=== PATIENT | female | born 1975 | race African-American/Black ===

== ENCOUNTER 2020-02-10 22:19 | Emergency (ER) | payer MEDICAID ==
[~2020-02-10] VITALS: Ht 152.4 cm; Wt 145.0 kg
[2020-02-10 22:35] VITALS: BP 142/81
[2020-02-10] MEDS ORDERED: ACETAMINOPHEN 500MG TABLET PO ONE (22:45)
== END 2020-02-11 01:30 | disposition home or self-care (01) ==
LOC: ER 22:19
DX: Z20.828 Contact with and (suspected) exposure to other viral communicable diseases (principal); J40 Bronchitis, not specified as acute or chronic; Z88.0 Allergy status to penicillin
CPT/HCPCS: 71045; 87635; 93005; 99285; C9803

== ENCOUNTER 2020-02-12 11:38 | Inpatient (IN) | payer MEDICAID ==
[~2020-02-12] VITALS: Ht 152.4 cm; Wt 138.3 kg
[~2020-02-12 11:38] MED LIST: LIDOCAINE HCL/PF 1% 2ML VIAL ONE
[2020-02-12] MEDS ORDERED: ACETAMINOPHEN 325MG TABLET PO ONE (12:15)
[2020-02-12] MEDS ORDERED: DEXAMETHASONE 10 MG/ML VIAL IV ONE (12:45)
[2020-02-12] MEDS ORDERED: CEFTRIAXONE 1 G PREMIX 50 ML IV ONE (12:45)
[2020-02-12 13:17] LABS: BG BASE EXCESS -0.1 mmol/L (-2.0-2.0); BG CARBOXYHEMOGLOBIN 0.3 % (0.5-1.5); BG DEOXYHEMOGLOBIN 7.6 % (0.0-5.0); BG FRACTION INSPIRED OXYGEN 28; BG HCO3 ACT 22.4 mmol/L (22.0-26.0); BG METHEMOGLOBIN 0.1 % (0.0-1.5); BG OXYGEN SATURATION 92.4 % (92.0-98.5); BG PCO2 29.6 mmHg (35.0-45.0); BG PH 7.497 (7.350-7.450); BG PO2 64.6 mmHg (75.0-100.0); BG SAMPLE SITE RIGHT RADIAL; BG TOTAL HEMOGLOBIN 11.2 g/dL (12.0-18.0); BG VENT MODE NASAL CANNULA
[2020-02-12 13:29] LABS: BASOPHILS % 1.1 % (0.0-2.0); EOSINOPHILS % 0.1 % (0.0-5.0); HEMATOCRIT. 33.3 % (36.0-48.0); HEMOGLOBIN. 10.9 g/dL (12.0-16.0); MEAN CORPUSCULAR HEMOGLOBIN 24.5 pg (28.0-32.0); MEAN PLATELET VOLUME 9.4 fl (7.4-10.4); MONOCYTES % 5.3 % (2.0-8.0); NEUTROPHILS % 61.5 % (40.0-76.0); PLATELET 180 x1000/uL (130-400); RED BLOOD CELL COUNT 4.45 mill/uL (4.2-5.4)
[2020-02-12 13:37] LABS: CHLORIDE 104 mEq/L (98-107)
[2020-02-12 13:42] LABS: HCG SCREEN NEGATIVE
[2020-02-12 13:45] LABS: CREATINE KINASE 122 IU/L (26-192)
[2020-02-12 13:59] LABS: CLARITY URINE CLEAR (CLEAR); COLOR URINE YELLOW (YELLOW); KETONES URINE 1+ (NEGATIVE); LEUKOCYTE ESTERASE URINE NEGATIVE (NEGATIVE); NITRITE URINE NEGATIVE (NEGATIVE); OCCULT BLOOD URINE 1+ (NEGATIVE); PROTEIN URINE 4+ (NEGATIVE); SPECIFIC GRAVITY URINE 1.035 (1.005-1.030)
[2020-02-12 14:26] LABS: D-DIMER 0.41 mg/L FEU (<0.50); PROTHROMBIN TIME 10.7 sec (9.6-11.0)
[2020-02-12] MEDS ORDERED: CEFTRIAXONE 1 G PREMIX 50 ML IV SCH (15:15)
[2020-02-12] MEDS ORDERED: ONDANSETRON HCL 4MG/2ML INJ IV PRN (15:15)
[2020-02-12] MEDS ORDERED: POTASSIUM CHLORIDE 20MEQ TABLET SR PO NR (16:15)
[2020-02-12] MEDS ORDERED: BENZONATATE 100MG CAPSULE PO PRN (16:15)
[2020-02-12] MEDS: ENOXAPARIN 120MG/0.8ML SYR SUBCUT SCH (16:39)
[2020-02-12] MEDS: AZITHROMYCIN 250 MG TABLET PO SCH (16:39)
[2020-02-12 17:00] LABS: *AMPHETAMINES SCREEN URINE NEGATIVE (NEGATIVE); *BARBITURATES SCREEN URINE NEGATIVE (NEGATIVE); *BENZODIAZEPINES SCREEN URINE NEGATIVE (NEGATIVE); *COCAINE SCREEN URINE NEGATIVE (NEGATIVE); CANNABINOID URINE SCREEN NEGATIVE (NEGATIVE); METHADONE URINE SCREEN NEGATIVE (NEGATIVE); OPIATES URINE SCREEN NEGATIVE (NEGATIVE); PHENCYCLIDINE URINE SCREEN NEGATIVE (NEGATIVE)
[2020-02-12 23:40] VITALS: BP 128/84
[2020-02-13] VITALS: BP 128/84
[2020-02-13 04:00] VITALS: BP 116/75
[2020-02-13] MEDS: ENOXAPARIN 120MG/0.8ML SYR SUBCUT SCH (04:15)
[2020-02-13] MEDS: ACETAMINOPHEN 325MG TABLET PO PRN (04:40)
[2020-02-13] MEDS ORDERED: PNEUMOCOCCAL 23-VAL P-SAC VAC 0.5 ML IM ONE (08:00)
[2020-02-13] MEDS: AZITHROMYCIN 250 MG TABLET PO SCH (08:04)
[2020-02-13 08:22] VITALS: BP 117/75
[2020-02-13] MEDS ORDERED: DEXAMETHASONE 4MG TABLET PO SCH (09:00)
[2020-02-13] MEDS: CEFTRIAXONE 1,000 MG in DEXTROSE 5% WATER 50 ML IV SCH (10:34)
[2020-02-13] MEDS ORDERED: CEFTRIAXONE 1,000 MG in DEXTROSE 5% WATER 50 ML IV SCH (11:00)
[2020-02-13 12:06] VITALS: BP 130/87
[2020-02-13] MEDS ORDERED: DEXTROSE 50% WATER 50ML SYRINGE IV PRN (12:15)
[2020-02-13] MEDS: BLOOD SUGAR DIAGNOSTIC STRIP TEST SCH ×3 (12:39→21:22)
[2020-02-13] MEDS: INSULIN LISPRO 100 UNITS/ML SUBCUT SCH ×3 (12:45→21:22)
[2020-02-13] MEDS ORDERED: INSULIN GLARGINE UD 100 UNITS/ML SYR SUBCUT NR (13:30)
[2020-02-13 16:00] VITALS: BP 116/67
[2020-02-13] MEDS ORDERED: DEXAMETHASONE 4MG TABLET PO NR (16:00)
[2020-02-13] MEDS: ENOXAPARIN 150MG/ML SYR SUBCUT SCH (17:11)
[2020-02-13] MEDS: ALBUTEROL 6.7GM HFA INHALER ORI SCH (17:27)
[2020-02-13 20:00] VITALS: BP 111/63
[2020-02-13] MEDS: INSULIN GLARGINE UD 100 UNITS/ML SYR SUBCUT SCH (21:38)
[2020-02-14] VITALS: BP 112/65
[2020-02-14] MEDS ORDERED: VANCOMYCIN 2,000 MG in DEXT 5% WATER 500 ML IV NR ×2
[2020-02-14] MEDS: ALBUTEROL 6.7GM HFA INHALER ORI SCH ×5 (00:04→23:47)
[2020-02-14 04:00] VITALS: BP 112/55
[2020-02-14] MEDS: ACETAMINOPHEN 325MG TABLET PO PRN ×2 (05:35→13:33)
[2020-02-14] MEDS: ENOXAPARIN 150MG/ML SYR SUBCUT SCH ×2 (05:57→17:21)
[2020-02-14] MEDS: BLOOD SUGAR DIAGNOSTIC STRIP TEST SCH ×4 (07:40→21:16)
[2020-02-14 08:00] VITALS: BP 130/66
[2020-02-14] MEDS: INSULIN LISPRO 100 UNITS/ML SUBCUT SCH ×4 (08:19→21:16)
[2020-02-14] MEDS: DEXAMETHASONE 4MG TABLET PO SCH (09:39)
[2020-02-14] MEDS: AZITHROMYCIN 250 MG TABLET PO SCH (09:41)
[2020-02-14] MEDS: CEFTRIAXONE 1,000 MG in DEXTROSE 5% WATER 50 ML IV SCH (11:13)
[2020-02-14] MEDS: INSULIN GLARGINE UD 100 UNITS/ML SYR SUBCUT SCH ×2 (11:14→21:17)
[2020-02-14 12:00] VITALS: BP 124/80
[2020-02-14] MEDS ORDERED: VANCOMYCIN 1 G PREMIX 200 ML IV SCH (14:00)
[2020-02-14 16:00] VITALS: BP 119/71
[2020-02-14] MEDS ORDERED: INSULIN LISPRO 100 UNITS/ML SUBCUT NR (17:45)
[2020-02-14 20:00] VITALS: BP 117/84
[2020-02-15] VITALS: BP 107/74
[2020-02-15] MEDS: ACETAMINOPHEN 325MG TABLET PO PRN ×2 (00:35→17:56)
[2020-02-15 04:00] VITALS: BP 111/71
[2020-02-15] MEDS: ALBUTEROL 6.7GM HFA INHALER ORI SCH ×4 (06:07→23:47)
[2020-02-15] MEDS: ENOXAPARIN 150MG/ML SYR SUBCUT SCH ×2 (06:08→17:43)
[2020-02-15] MEDS: BLOOD SUGAR DIAGNOSTIC STRIP TEST SCH ×4 (07:30→20:19)
[2020-02-15 08:00] VITALS: BP 104/67
[2020-02-15] MEDS: DEXAMETHASONE 4MG TABLET PO SCH (08:44)
[2020-02-15] MEDS: AZITHROMYCIN 250 MG TABLET PO SCH (08:44)
[2020-02-15] MEDS: INSULIN LISPRO 100 UNITS/ML SUBCUT SCH ×5 (08:45→20:19)
[2020-02-15 12:00] VITALS: BP 124/77
[2020-02-15] MEDS: INSULIN GLARGINE UD 100 UNITS/ML SYR SUBCUT SCH ×2 (12:53→22:23)
[2020-02-15] MEDS: CEFTRIAXONE 1,000 MG in DEXTROSE 5% WATER 50 ML IV SCH (13:55)
[2020-02-15 16:00] VITALS: BP 120/72
[2020-02-15 16:54] LABS: CHLORIDE 101 mEq/L (98-107)
[2020-02-15 20:00] VITALS: BP 106/69
[2020-02-15 21:57] LABS: BG BASE EXCESS -0.1 mmol/L (-2.0-2.0); BG CARBOXYHEMOGLOBIN 0.3 % (0.5-1.5); BG DEOXYHEMOGLOBIN 4.9 % (0.0-5.0); BG FRACTION INSPIRED OXYGEN 36; BG HCO3 ACT 22.9 mmol/L (22.0-26.0); BG METHEMOGLOBIN 0.2 % (0.0-1.5); BG OXYGEN SATURATION 95.1 % (92.0-98.5); BG OXYHEMOGLOBIN 94.6 % (94.0-97.0); BG PCO2 32.1 mmHg (35.0-45.0); BG PH 7.471 (7.350-7.450); BG PO2 76.1 mmHg (75.0-100.0); BG SAMPLE SITE LEFT RADIAL; BG TOTAL HEMOGLOBIN 12.3 g/dL (12.0-18.0); BG VENT MODE NASAL CANNULA
[2020-02-16] VITALS (7 sets, daily range): BP systolic 107–133; BP diastolic 58–86
[2020-02-16] MEDS: ENOXAPARIN 150MG/ML SYR SUBCUT SCH ×2 (05:41→17:22)
[2020-02-16] MEDS: ALBUTEROL 6.7GM HFA INHALER ORI SCH ×4 (05:42→23:34)
[2020-02-16] MEDS: BLOOD SUGAR DIAGNOSTIC STRIP TEST SCH ×4 (05:48→20:14)
[2020-02-16] MEDS: INSULIN LISPRO 100 UNITS/ML SUBCUT SCH ×7 (07:51→20:18)
[2020-02-16] MEDS: METFORMIN HCL 500MG TABLET PO SCH ×2 (07:53→17:22)
[2020-02-16] MEDS: AZITHROMYCIN 250 MG TABLET PO SCH (08:00)
[2020-02-16] MEDS: DEXAMETHASONE 4MG TABLET PO SCH (08:00)
[2020-02-16] MEDS: INSULIN GLARGINE UD 100 UNITS/ML SYR SUBCUT SCH ×2 (09:24→21:57)
[2020-02-16] MEDS ORDERED: REMDESIVIR 200 MG in SODIUM CHLORIDE 0.9% 250 ML IV SCH (13:00)
[2020-02-16] MEDS: CEFTRIAXONE 1,000 MG in DEXTROSE 5% WATER 50 ML IV SCH (13:55)
[2020-02-16 17:08] LABS: CHLORIDE 103 mEq/L (98-107)
[2020-02-16] MEDS: ACETAMINOPHEN 325MG TABLET PO PRN (17:23)
[2020-02-17 04:00] VITALS: BP 106/58
[2020-02-17] MEDS: ALBUTEROL 6.7GM HFA INHALER ORI SCH ×4 (06:19→23:01)
[2020-02-17] MEDS: ENOXAPARIN 150MG/ML SYR SUBCUT SCH ×2 (06:20→18:28)
[2020-02-17] MEDS: BLOOD SUGAR DIAGNOSTIC STRIP TEST SCH ×4 (06:41→20:06)
[2020-02-17 08:00] VITALS: BP 116/71
[2020-02-17] MEDS: DEXAMETHASONE 4MG TABLET PO SCH (08:23)
[2020-02-17] MEDS: AZITHROMYCIN 250 MG TABLET PO SCH (08:23)
[2020-02-17] MEDS: METFORMIN HCL 500MG TABLET PO SCH ×2 (08:23→17:23)
[2020-02-17] MEDS: INSULIN LISPRO 100 UNITS/ML SUBCUT SCH ×8 (08:24→20:07)
[2020-02-17] MEDS: INSULIN GLARGINE UD 100 UNITS/ML SYR SUBCUT SCH ×2 (10:54→22:17)
[2020-02-17 12:00] VITALS: BP 115/66
[2020-02-17] MEDS: CEFTRIAXONE 1,000 MG in DEXTROSE 5% WATER 50 ML IV SCH ×2 (12:44→12:59)
[2020-02-17] MEDS: REMDESIVIR 100 MG in SODIUM CHLORIDE 0.9% 250 ML IV SCH (13:58)
[2020-02-17 16:00] VITALS: BP 123/64
[2020-02-17 20:00] VITALS: BP 96/51
[2020-02-18] VITALS: BP 96/56
[2020-02-18 04:00] VITALS: BP 110/73
[2020-02-18] MEDS: ALBUTEROL 6.7GM HFA INHALER ORI SCH ×3 (05:56→18:24)
[2020-02-18] MEDS: ENOXAPARIN 150MG/ML SYR SUBCUT SCH ×2 (05:56→18:19)
[2020-02-18] MEDS: BLOOD SUGAR DIAGNOSTIC STRIP TEST SCH ×4 (06:42→21:52)
[2020-02-18] MEDS: INSULIN LISPRO 100 UNITS/ML SUBCUT SCH ×5 (07:44→21:00)
[2020-02-18 08:00] VITALS: BP 109/68
[2020-02-18] MEDS: METFORMIN HCL 500MG TABLET PO SCH ×2 (08:24→18:18)
[2020-02-18] MEDS: DEXAMETHASONE 4MG TABLET PO SCH (08:24)
[2020-02-18 12:00] VITALS: BP 116/58
[2020-02-18] MEDS: REMDESIVIR 100 MG in SODIUM CHLORIDE 0.9% 250 ML IV SCH (14:14)
[2020-02-18 16:00] VITALS: BP 114/71
[2020-02-18 20:00] VITALS: BP 116/61
[2020-02-18] MEDS ORDERED: INSULIN GLARGINE UD 100 UNITS/ML SYR SUBCUT SCH (22:00)
[2020-02-19] VITALS: BP 116/81
[2020-02-19] MEDS: ALBUTEROL 6.7GM HFA INHALER ORI SCH ×4 (01:21→17:32)
[2020-02-19 04:00] VITALS: BP 110/60
[2020-02-19] MEDS: ENOXAPARIN 150MG/ML SYR SUBCUT SCH ×2 (05:09→17:31)
[2020-02-19] MEDS: BLOOD SUGAR DIAGNOSTIC STRIP TEST SCH ×4 (06:21→20:22)
[2020-02-19] MEDS: INSULIN LISPRO 100 UNITS/ML SUBCUT SCH ×4 (07:13→20:25)
[2020-02-19 08:00] VITALS: BP 118/70
[2020-02-19] MEDS: DEXAMETHASONE 4MG TABLET PO SCH (08:03)
[2020-02-19] MEDS: METFORMIN HCL 500MG TABLET PO SCH ×2 (08:03→17:32)
[2020-02-19 10:41] LABS: CHLORIDE 104 mEq/L (98-107)
[2020-02-19] MEDS ORDERED: POTASSIUM CHLORIDE 20MEQ TABLET SR PO NR (11:45)
[2020-02-19 12:00] VITALS: BP 113/65
[2020-02-19] MEDS: REMDESIVIR 100 MG in SODIUM CHLORIDE 0.9% 250 ML IV SCH (14:03)
[2020-02-19 16:00] VITALS: BP 113/83
[2020-02-19 20:13] VITALS: BP 116/78
[2020-02-19] MEDS: INSULIN GLARGINE UD 100 UNITS/ML SYR SUBCUT SCH (22:09)
[2020-02-20] VITALS: BP 112/76
[2020-02-20] MEDS: ALBUTEROL 6.7GM HFA INHALER ORI SCH ×3 (01:27→12:39)
[2020-02-20 04:00] VITALS: BP 112/59
[2020-02-20] MEDS: ENOXAPARIN 150MG/ML SYR SUBCUT SCH (05:12)
[2020-02-20] MEDS: BLOOD SUGAR DIAGNOSTIC STRIP TEST SCH ×2 (06:22→11:57)
[2020-02-20 08:00] VITALS: BP 102/52
[2020-02-20] MEDS: METFORMIN HCL 500MG TABLET PO SCH (08:05)
[2020-02-20] MEDS: DEXAMETHASONE 4MG TABLET PO SCH (08:05)
[2020-02-20] MEDS: INSULIN LISPRO 100 UNITS/ML SUBCUT SCH ×2 (08:08→12:45)
[2020-02-20] MEDS: INSULIN GLARGINE UD 100 UNITS/ML SYR SUBCUT SCH (09:51)
[2020-02-20] MEDS ORDERED: DEX4 PO (11:35)
[2020-02-20] MEDS ORDERED: METF500T PO (11:35)
[2020-02-20] MEDS ORDERED: ALBU6.7H9 ORI (11:35)
[2020-02-20] MEDS ORDERED: INSLIS SUBCUT (11:35)
[2020-02-20 12:00] VITALS: BP 103/58
[2020-02-20 12:02] VITALS: BP 103/58
[2020-02-20] MEDS: REMDESIVIR 100 MG in SODIUM CHLORIDE 0.9% 250 ML IV SCH (13:36)
[2020-02-20] MEDS ORDERED: ENOXAPARIN 150MG/ML SYR SUBCUT SCH (18:00)
== END 2020-02-20 15:47 | disposition home or self-care (01) | DRG 720 ==
LOC: ER 11:38 → EDBEDREQ 14:59 → EDBEDREQTM 15:26 → ENRESERV 21:55 → 7WST 23:35
PROVIDERS: ADMIT Internal Medicine; ATTEND Internal Medicine
PROC: XW033E5 Introduction of Remdesivir Anti-infective into Peripheral Vein, Percutaneous Approach, New Technology Group 5 (ICD-10-PCS; 2020-02-16)
PROC: XW033E5 Introduction of Remdesivir Anti-infective into Peripheral Vein, Percutaneous Approach, New Technology Group 5 (ICD-10-PCS; 2020-02-17)
PROC: XW033E5 Introduction of Remdesivir Anti-infective into Peripheral Vein, Percutaneous Approach, New Technology Group 5 (ICD-10-PCS; principal; 2020-02-18)
PROC: XW033E5 Introduction of Remdesivir Anti-infective into Peripheral Vein, Percutaneous Approach, New Technology Group 5 (ICD-10-PCS; 2020-02-19)
PROC: XW033E5 Introduction of Remdesivir Anti-infective into Peripheral Vein, Percutaneous Approach, New Technology Group 5 (ICD-10-PCS; 2020-02-20)
DX: A41.89 Other specified sepsis (principal); U07.1 COVID-19; J96.01 Acute respiratory failure with hypoxia; J12.89 Other viral pneumonia; E87.3 Alkalosis; E44.0 Moderate protein-calorie malnutrition; E87.6 Hypokalemia; D64.9 Anemia, unspecified; E11.9 Type 2 diabetes mellitus without complications; B97.89 Other viral agents as the cause of diseases classified elsewhere; D72.819 Decreased white blood cell count, unspecified; Z86.19 Personal history of other infectious and parasitic diseases; Z68.43 Body mass index [BMI] 50.0-59.9, adult; Z79.899 Other long term (current) drug therapy
CPT/HCPCS: 36415; 36600; 71045; 80048; 80053; 80202; 80305; 81003; 82375; 82550; 82728; 82805; 82962; 83036; 83605; 83615; 83880; 84145; 84484; 84703; 85025; 85379; 85384; 86140; 86850; 86900; 93005; 99291; J0696; J1100; J1650; J1815; J3370; J3490; J7050; J7060; J8540; Q9957

== ENCOUNTER 2020-04-05 19:08 | Emergency (ER) | payer MEDICAID ==
[~2020-04-05] VITALS: Ht 157.5 cm; Wt 141.0 kg
[~2020-04-05 19:08] MED LIST changes: +ALBU6.7H9 ORI; +DEX4 PO; +INSLIS SUBCUT; -LIDOCAINE HCL/PF 1% 2ML VIAL ONE; +METF500T PO
[2020-04-05 19:10] VITALS: BP 151/91
== END 2020-04-05 21:05 | disposition left against medical advice (07) ==
LOC: ER 19:08
DX: Z53.21 Procedure and treatment not carried out due to patient leaving prior to being seen by health care provider (principal)
CPT/HCPCS: 82962; 93005